=== PATIENT | female | born 1995 | race Caucasian/White ===

== ENCOUNTER 2017-04-07 12:37 | Emergency (ER) | payer BC ==
[~2017-04-07] VITALS: Ht 160 cm; Wt 69.4 kg
[2017-04-07 14:06] LABS: HEMATOCRIT 46.6 % (36.0-46.0); MCH 28.2 PG (29.0-34.0); MCHC 32.6 G/DL (30.0-36.0); MCV 86.5 FL (83-99); PLATELET COUNT 274 K/uL (156-360); RBC DIS.WIDTH-CV 12.7 % (11.8-14.6); RED BLOOD COUNT 5.39 M/uL (3.80-5.20); WHITE BLOOD COUNT 7.1 K/uL (4.1-10.2)
[2017-04-07 14:15] LABS: CHLORIDE 105 mEq/L (99-109); SODIUM 142 mEq/L (136-147)
[2017-04-07 14:17] LABS: GLUCOSE 95 mg/dL (70-99)
[2017-04-07 14:18] LABS: ANION GAP 10 MEQ/L (2-14)
[2017-04-07 14:19] LABS: TOTAL BILIRUBIN 0.2 mg/dL (0.0-1.0)
[2017-04-07 14:21] LABS: ALKALINE PHOSPHATASE 99 IU/L (3-129); GFR ESTIMATE (CALCULATED) > 59 mL/min/
[2017-04-07 14:22] LABS: UREA NITROGEN (BUN) 20 mg/dL (9-23)
[2017-04-07] MEDS ORDERED: DOXYCYCLINE HY100 MG PO (15:44)
[2017-04-07 15:58] VITALS: BP 125/79
== END 2017-04-07 16:15 | disposition home or self-care (01) ==
LOC: EME 12:37
DX: L03.111 Cellulitis of right axilla (principal)
CPT/HCPCS: 80053; 85027; 99281; 99285

== ENCOUNTER 2017-12-05 08:58 | Emergency (ER) | payer BC ==
[~2017-12-05] VITALS: Ht 160 cm; Wt 72.2 kg
[~2017-12-05 08:58] MED LIST: DOXYCYCLINE HY100 MG PO
[2017-12-05 09:24] LABS: BASOPHIL (%) 0.4 % (0-1); EOSINOPHIL COUNT 0.2 K/uL (0-0.3); HEMATOCRIT 51.3 % (36.0-46.0); HEMOGLOBIN 16.7 G/DL (11.9-15.5); IMMATURE GRANULOCYTE (%) 0.2 % (0.0-0.7); LYMPHOCYTE (%) 15.9 % (15-42); LYMPHOCYTE COUNT 1.3 K/uL (1.0-2.8); MCH 29.3 PG (29.0-34.0); MCHC 32.6 G/DL (30.0-36.0); MONOCYTE (%) 1.2 % (3-12); MONOCYTE COUNT 0.1 K/uL (0-0.8); NEUTROPHIL (%) 79.3 % (45-76); NEUTROPHIL COUNT 6.4 K/uL (1.8-6.4); PLATELET COUNT 196 K/uL (156-360); RBC DIS.WIDTH-CV 12.9 % (11.8-14.6); RBC DIS.WIDTH-SD 42.3 % (39-53); WHITE BLOOD COUNT 8.1 K/uL (4.1-10.2)
[2017-12-05 09:33] LABS: CHLORIDE 102 mEq/L (99-109); POTASSIUM 3.8 mEq/L (3.7-5.4); SODIUM 140 mEq/L (136-147)
[2017-12-05 09:35] LABS: GLUCOSE 195 mg/dL (70-99)
[2017-12-05 09:38] LABS: CREATININE 1.1 mg/dL (0.6-1.3); GFR ESTIMATE (CALCULATED) > 59 mL/min/; SERUM ETHYL ALCOHOL < 10 mg/dL
[2017-12-05 09:39] LABS: UREA NITROGEN (BUN) 12 mg/dL (9-23)
[2017-12-05 12:17] LABS: AMPHETAMINE NEGATIVE (500 ng/mL); BARBITURATES NEGATIVE (200 ng/mL); BENZODIAZEPINES PRESUMPTIVE POSITIVE (150 ng/mL); BUPRENORPHINE NEGATIVE (10 ng/mL); COCAINE PRESUMPTIVE POSITIVE (150 ng/mL); METHADONE NEGATIVE (200 ng/mL); METHAMPHETAMINE NEGATIVE (500 ng/mL); OPIATES (MORPHINE) PRESUMPTIVE POSITIVE (100 ng/mL); OXYCODONE NEGATIVE (100 ng/mL); PHENCYCLIDINE NEGATIVE (25 ng/mL); PROPOXYPHENE NEGATIVE (300 ng/mL); THC CANNABINOIDS PRESUMPTIVE POSITIVE (50 ng/mL); TRICYCLIC ANTIDEPRESSANTS NEGATIVE (300 ng/mL)
[2017-12-05 14:41] LABS: BENZODIAZEPINES, URINE SCREEN POSITIVE (200 ng/mL)
[2017-12-05 17:19] VITALS: BP 121/78
== END 2017-12-05 17:19 | disposition left against medical advice (07) ==
LOC: EME 08:58
PROVIDERS: Emergency Medicine
DX: T40.1X1A Poisoning by heroin, accidental (unintentional), initial encounter (principal); I50.9 Heart failure, unspecified; Z72.0 Tobacco use; Z53.20 Procedure and treatment not carried out because of patient's decision for unspecified reasons
CPT/HCPCS: 71045; 80048; 82948; 84999; 85025; G0480; J1940; J2310